=== PATIENT | male | born 1970 | race Two or more races ===

== ENCOUNTER 2022-03-01 08:34 | Inpatient (IN) | payer OTHER ==
[2022-02-28 19:21] VITALS: BMI 20.6
[~2022-03-01 08:34] MED LIST: ACETAMINOPHEN 325 MG TABLET (FP) PO PRN; BENZOCAINE/MENTHOL (CHLORASEPTIC ) LOZENGE MM PRN; BISMUTH SUBSALICYLATE 524 MG/30 ML PO PRN; DICYCLOMINE HCL 10 MG CAPSULE PO PRN; IBUPROFEN 400 MG TABLET (FP) PO PRN; LOPERAMIDE HCL 2 MG CAPSULE PO PRN; MAG HYDROX/AL HYDROX/SIMETH 30 ML UNIT-DOSE CUP PO PRN; MAGNESIUM CITRATE 300 ML BOTTLE PO PRN; MAGNESIUM HYDROX 2400MG/30ML ORAL SUSPENSION 30 ML CUP PO PRN; NALOXONE HCL 0.4 MG/ML VIAL IM PRN; NICOTINE POLACRILEX 2 MG GUM BUC PRN; P-EPHED 60MG/TRIPROLIDI 2.5MG TABLET PO PRN; PROCHLORPERAZINE MALEATE 5 MG TABLET PO PRN; cloNIDine HCL 0.1 MG TABLET PO PRN; clonazePAM 0.5 MG ODT TABLETS SL PRN; guaiFENesin 200 MG/10 ML 10 ML UNIT-DOSE CUPS PO PRN; methaDONE HCL 10 MG TABLET (FOR DETOX USE ONLY) PO ONE
[2022-03-01] MEDS ORDERED: PRENATAL VITAMINS W/ FOLIC ACID TABLET (FP) PO SCH (10:00)
[2022-03-01] MEDS: DOXYCYCLINE HYCLATE 100 MG CAPSULE PO SCH ×2 (10:21→23:34)
[2022-03-01] MEDS: NICOTINE 21 MG/24 HOURS TOPICAL PATCH TD SCH (10:21)
[2022-03-01] MEDS: DOXYCYCLINE HYCLATE 100 MG TABLET PO SCH ×2 (10:40→23:27)
[2022-03-01] MEDS ORDERED: THIAMINE HCL 100 MG TABLET (FP) PO SCH (22:00)
[2022-03-01] MEDS ORDERED: MELATONIN 5 MG TABLETS PO SCH (22:00)
[2022-03-01] MEDS: METHOCARBAMOL 500 MG TABLET PO PRN (23:29)
[2022-03-02] MEDS ORDERED: methaDONE HCL 10 MG TABLET (FOR DETOX USE ONLY) PO ONE (10:00)
[2022-03-02] MEDS: DOXYCYCLINE HYCLATE 100 MG TABLET PO SCH (10:36)
[2022-03-02] MEDS: METHOCARBAMOL 500 MG TABLET PO PRN (10:36)
[2022-03-02] MEDS: NICOTINE 21 MG/24 HOURS TOPICAL PATCH TD SCH (10:38)
[2022-03-02] MEDS: DOXYCYCLINE HYCLATE 100 MG CAPSULE PO SCH (10:40)
[2022-03-02 14:35] VITALS: BP 127/85; PULSE 78; TEMP 97.3
[2022-03-04] MEDS ORDERED: methaDONE HCL 10 MG TABLET (FOR DETOX USE ONLY) PO ONE (10:00)
== END 2022-03-02 12:15 | disposition left against medical advice (07) | DRG 894 ==
LOC: YASAS 08:34 → Y3N 10:12 → UNDOADMIN 10:12 → Y3N 12:43
PROVIDERS: ADMIT Allergy & Immunology; ATTEND Allergy & Immunology
PROC: HZ2ZZZZ Detoxification Services for Substance Abuse Treatment (ICD-10-PCS; principal; 2022-03-01)
DX: F11.23 Opioid dependence with withdrawal (principal); L02.413 Cutaneous abscess of right upper limb; F10.230 Alcohol dependence with withdrawal, uncomplicated; F12.20 Cannabis dependence, uncomplicated; F17.210 Nicotine dependence, cigarettes, uncomplicated
CPT/HCPCS: 87811; 93005; 93010; C9803-CS; U0003; U0005